=== PATIENT | female | born 1950 | race Hispanic/Latino ===

== ENCOUNTER 2022-05-21 05:30 | Day surgery (SDC) | payer MEDICARE ==
[~2022-05-21] VITALS: Ht 154.9 cm; Wt 78.2 kg
--- NOTE | ~2022-05-21 | OR ---
[facility] [address] [place], [place] [address] Draft DATE OF OPERATION: 05/21/2022 SURGEON: Heena Proctor DO PREOPERATIVE DIAGNOSES: 1. Postmenopausal bleeding. 2. Thickened endometrial stripe. 3. Cervical stenosis. 4. Endocervical polyp. POSTOPERATIVE DIAGNOSES: 1. Postmenopausal bleeding. 2. Thickened endometrial stripe. 3. Cervical stenosis. 4. Endocervical polyp. PROCEDURES PERFORMED: 1. Hysteroscopic dilation and curettage. 2. Excision of ectocervical polyp. ANESTHESIA: MAC. ESTIMATED BLOOD LOSS: 15 mL. SPECIMENS: 1. Endometrial curettings. 2. Ectocervical polyp. FINDINGS: Normal external genitalia, vagina and cervix. Postmenopausal changes. Some apical and anterior compartment relaxation. Stenotic cervix was dilated without difficulty. A flat hypervascular polyp of the ectocervix at 10-11 o'clock that was removed in its entirety. On hysteroscopy, normal cervical os. Cervical canal with slightly thickened. Endometrium with no polyps or other abnormalities noted in the uterine cavity. Hemostasis at the end of the procedure. FLUID DEFICIT: 275 mL. PATIENT NAME: ROSEANN REYNOSO OPERATIVE REPORT DATE OF : 54 REPORT #: [id number] PHYSICIAN: HEENA PROCTOR) PCP: KORTNEY MADRID PA-C REPORT IS CONFIDENTIAL AND NOT TO BE RELEASED WITHOUT AUTHORIZATION [facility] [address] [facility] [place] [address] Draft COMPLICATIONS: None. INDICATIONS: Ms. Reynoso is a very pleasant 71-year-old postmenopausal female who had postmenopausal bleeding. An ultrasound was performed that demonstrated thickened endometrial stripe. She was scheduled for hysteroscopy, D and C in the office, but unfortunately was unable to be completed due to cervical stenosis. During that attempted procedure, a hypervascular polyp at 10 to 11 o'clock was noted on the cervix. The patient denies any history of abnormal Pap smears or postcoital bleeding. The patient was consented for hysteroscopy, D and C, and excision of ectocervical polyp. Risks, benefits, and alternatives were discussed in detail with the patient. The patient understands and wished to proceed with the procedure. PROCEDURE IN DETAIL: The patient was taken to the operating room where a time-out was performed to confirm correct patient, correct procedure. MAC anesthesia was adequately established. The patient was prepped and draped in dorsal lithotomy position with her feet in Yellofin stirrups. ICPs were on running and no preoperative antibiotics or heparin were indicated. A 3 minute prep for a time was observed consistent with policy. The weighted speculum was placed in vagina and the anterior lip of the cervix was grasped with single-tooth tenaculum. Normal external genitalia. Vagina and cervix were appreciated other than previously discussed hypervascular flat cervical polyp at 10 to 11 o'clock. Some laxation of the apex and anterior compartments were observed. The posterior edge of the cervix was also grasped with a single-tooth tenaculum in order to straighten the cervical os and the cervix was gently dilated using Hegar dilators without difficulty. An operative hysteroscope was then placed in the cervical os and advanced under direct visualization through the cervical canal into the uterine cavity. Bilateral tubal ostia were identified and normal, but thickened appearing endometrium. This was biopsied using MyoSure Lite device without difficulty. 275 mL of fluid deficit was noted. The hysteroscope was removed and attention was turned to the cervical polypectomy. The base of the cervix was injected with approximately 5 mL of 1% lidocaine with epinephrine. The polyp was gently grasped with the DeBakey graspers and ellipsed out using a 15 blade scalpel. The lesion appears to be removed in its entirety. The polyp site was then reapproximated using 3-0 chromic with excellent hemostasis appreciated. The patient was then taken to the PACU in good and stable condition. Sponge, needle, and instrument counts were correct x2 at the end of the procedure. PATIENT NAME: ROSEANN REYNOSO OPERATIVE REPORT DATE OF : 54 REPORT #: [id number] PHYSICIAN: HEENA PROCTOR DO (JD) PCP: KORTNEY MADRID PA-C REPORT IS CONFIDENTIAL AND NOT TO BE RELEASED WITHOUT AUTHORIZATION [address] [address] Draft DO KELLIE Miranda/VINCENTL /[id number] Copies: ~ PATIENT NAME: ROSEANN REYNOSO OPERATIVE REPORT DATE OF : 54 REPORT #: [id number] PHYSICIAN: HEENA PROCTOR (SANTOSH) DO PCP: KORTNEY MADRID PA-C REPORT IS CONFIDENTIAL AND NOT TO BE RELEASED WITHOUT AUTHORIZATION
[~2022-05-21 05:30] MED LIST: AMARYL2 MG PO; LOVASTATIN20 MG PO; METFORMIN HCL500 MG PO; ZESTRIL20 MG PO
[2022-05-21] MEDS ORDERED: LO-DOSE ASPIRIN81 MG PO (05:59)
--- NOTE | 2022-05-21 08:16 | NUR ---
05/21/22 0815 Lorraine Marie 0804 PT ARRIVED TO PACU ON RA AND PT DROWSY AND DENIES PAIN AND NAUSEA. PT TALKING TO RN OFF AND ON. 0814 HOB INCREASED AND PT SIPPING WATER. PT REPORTS "I DIDN'T FEEL ANYTHING." PT RESTING IN BED WITH NO CONCERNS. PLAN OF CARE DISCUSSED.
--- NOTE | 2022-05-22 16:27 | PATH ---
[facility] [address] [place], [place] [address] Signed SPECIMEN(S): A ENDOMETRIAL CURETTINGS SPECIMEN(S): B ECTOCERVICAL POLYP SPECIMEN SOURCE: A. ENDOMETRIAL CURETTINGS B. ECTOCERVICAL POLYP CLINICAL HISTORY: Postmenopausal bleeding; cervical polyp; thickened endometrium FINAL PATHOLOGIC DIAGNOSIS: A. Endometrial curettings: - Fragments of endometrium and myometrium demonstrating features consistent with simple/cystic hyperplasia without atypia. - Some fragments demonstrate thickened blood vessels most suggestive of a concurrent endometrial polyp. B. Ectocervical polyp: - Ectocervical epithelium within normal limits present in a polypoid structure demonstrating granulation tissue formation with acute chronic inflammation. - Negative for dysplasia or carcinoma. TWK:slc:[id number] MICROSCOPIC EXAMINATION: Histologic sections of all submitted blocks are examined by light microscopy. These findings, together with the gross examination, support the pathologic diagnosis. GROSS DESCRIPTION: A. The specimen, labeled and designated "Edgardo, endometrial curettings," is received in formalin and consists of multiple fragments of pink-clements soft tissue (2.5 x 1.6 x 0.5 cm in aggregate). The specimen is submitted entirely in cassette (A1). B. The specimen, labeled and designated "Edgardo, ectocervical polyp," is received in formalin and consists of two fragments of red-brown to pink-clements soft tissue (0.7 to 0.8 cm in greatest dimension). The specimen is submitted entirely in cassette (B1). VB (under the direct supervision of a pathologist) The Gross Description was prepared using a voice recognition system. The report was reviewed for accuracy; however, sound-alike word errors, addition and/or deletions may occur. If there is any question about this report, please contact Client Services. PATIENT NAME: ROSEANN [facility] DATE OF : 54 REPORT #: [id number] PHYSICIAN: DESIRE HURD PCP: KORTNEY MADRID PA-C REPORT IS CONFIDENTIAL AND NOT TO BE RELEASED WITHOUT AUTHORIZATION [facility] [address] [place], [place] [address] Signed PERFORMING LABORATORY: The technical component was performed by [facility], [address] [place] [address] (CLIA# [id number]). The professional interpretation was performed by [facility], [facility], [address] [place] [id number] (CLIA#: [id number]). Diagnostician: Able Guillaume MD Pathologist Electronically Signed 05/22/2022 Copies: ~ PATIENT NAME: ROSEANN [facility] DATE OF : 54 REPORT #: [id number] PHYSICIAN: DESIRE HURD PCP: BROWN,KORTNEY PA-C REPORT IS CONFIDENTIAL AND NOT TO BE RELEASED WITHOUT AUTHORIZATION
== END 2022-05-21 08:48 | disposition home or self-care (01) ==
LOC: DS 05:30
PROVIDERS: ATTEND Obstetrics & Gynecology
PROC: 0UDB8ZZ Extraction of Endometrium, Via Natural or Artificial Opening Endoscopic (ICD-10-PCS; principal; 2022-05-21 07:30)
DX: N84.1 Polyp of cervix uteri (principal); N95.0 Postmenopausal bleeding; R93.89 Abnormal findings on diagnostic imaging of other specified body structures; E11.9 Type 2 diabetes mellitus without complications
CPT/HCPCS: J1885; J2001; J2405; J2704; J7121